=== PATIENT | male | born 2000 | race Caucasian/White ===

== ENCOUNTER 2018-04-06 22:40 | Inpatient (IN) ==
[2018-04-06] MEDS ORDERED: SODIUM CHLORIDE 0.9% 1000ML 1,000 ML IV ONE (22:59)
[2018-04-06 23:31] LABS: iSTAT Hemoglobin 15.6 g/dl (14.0-18.0); iSTAT Ionized Calcium 1.09 mmol/l
[2018-04-07] MEDS ORDERED: LIDO/EPINEPHRINE/SOD BICARB 20 ML VIAL ONE (00:41)
[2018-04-07] MEDS ORDERED: AMOXICILLIN/CLAVULANATE 875 MG TAB PO ONE (01:18)
[2018-04-07 01:43] LABS: Basophils # (auto) 0.02 K/uL (0-0.2); Basophils % (auto) 0.2 %; Eosinophils # (auto) 0.03 K/uL (0-0.5); Eosinophils % (auto) 0.3 %; Hematocrit (blood only) 48.4 % (42-52); Hemoglobin 16.7 g/dL (14.0-18.0); Immature Granulocytes # (auto) 0.02 K/uL (0.00-0.02); Immature Granulocytes % (auto) 0.2 %; Lymphocytes # (auto) 0.95 K/uL (1.2-3.4); Lymphocytes % (auto) 10.6 %; Mean Corpuscular Hgb Conc 34.5 g/dL (32-36); Mean Corpuscular Volume 94.9 fL (80-100); Mean Platelet Volume 9.7 fL (7.4-10.4); Monocytes # (auto) 0.66 K/uL (0.11-0.59); Monocytes % (auto) 7.3 %; Neutrophils # (auto) 7.32 K/uL (1.4-6.5); Neutrophils % (auto) 81.4 %; Platelet Count 184 K/uL (130-400); RDW Coefficient of Variation 12.7 % (11.5-14.5)
--- NOTE | 2018-04-07 01:52 | Emergency Department Note ---
Entered by Eze Traylor acting as a scribe for Juancarlos Powell History of Present Illness General Chief complaint: Facial Injury/Pain Stated complaint: PASSED OUT, LACERATION TO LIP/RT EYEBROW, NOSE DIS Time Seen by Provider: 04/06/18 22:54 Source: patient History of Present Illness Provider complaint: Facial injury Onset (ago): minute(s) 45 Location: face Pain Consistency: + other (Episode) Maximum Pain Intensity: 4 Associated symptoms: + confusion, + syncope and + other (Vision impairment); no cough, no fever/chills and no nausea/vomiting The patient is a 18 year old male who presents to the Emergency Room after having a syncopal episode about 45 minutes ago. He states that he was having a conversation when everything got fuzzy and black and he became confused. The next thing he remembers he was sitting up in a chair. He states he did eat dinner but did not drink a lot of water today. He also states he was smoking a marijuana pen earlier in the day but did not consume any alcohol. He denies any recent travel, steroid medications, fever or cough. He also is not on any blood thinners. He does state that he has in the past been told he has had an irregular heartbeat. Home Medications Home Medications Medication Instructions Recorded Confirmed Type amoxicillin-pot clavulanate 1 tab PO BID #14 tab 04/07/18 Rx [Augmentin] Past Med/Surg History Medical History No pertinent past medical history Family History Other No pertinent family history in first degree relatives Social History Feels Safe at Home: Yes Smoking Status: Former smoker Review of Systems See HPI for pertinent positives & negatives. and A total of 10 systems reviewed and were otherwise negative Physical Exam Vital Signs Vital Signs - 24 hr 04/06/18 22:43 04/07/18 00:43 04/07/18 01:48 Temperature 36.8 C Temperature Source Oral Sepsis Recent Fever Within 48 Hours No Sepsis New/Unexplained Change in Mental Status No Sepsis Action Taken by Nursing No Action Required Pulse Rate 91 H Pulse Rate [Apical] 66 60 Pulse Rhythm Regular Pulse Strength Normal Respiratory Rate 20 16 18 Respiratory Effort / Characteristics Non-Labored Non-Labored Non-Labored Respiratory Depth Normal Normal Normal Respiratory Pattern Regular Regular Regular Blood Pressure 136/80 Blood Pressure [Left Arm] 149/87 H 144/82 H Blood Pressure Mean 98 Blood Pressure Mean [Left Arm] 107 102 Blood Pressure Position Sitting Blood Pressure Position [Left Arm] Sitting Sitting Pulse Oximetry 99 100 Oxygen Delivery Method Room Air Room Air GENERAL: He is oriented to person, place, and time. He appears well-developed and well-nourished. He does not appear distressed. HENT: Exam performed. - Head: Normocephalic. Abrasion over the right eye brow - Right Ear: External ear normal. No mastoid tenderness. - Left Ear: External ear normal. No mastoid tenderness. - Mouth/Throat: The oropharynx is clear and moist. No trismus in the jaw. No dental abscesses or uvula swelling. No oropharyngeal exudate or tonsillar abscesses. Palate is stable. 7cm oral gaping laceration under the upper lip. NOSE: Nasal septum is displaced to the left. No septal hematoma bilaterally. EYES: Conjunctivae and EOM are normal. Pupils are equal, round, and reactive to light. Right eye exhibits no discharge. Left eye exhibits no discharge. No scleral icterus. NECK: Normal range of motion. Neck supple. No JVD present. No spinous process tenderness present. No carotid bruit present. No rigidity. No tracheal deviation and normal range of motion present. No Brudzinski's sign and no Kernig 's sign noted. CV: Normal rate, regular rhythm, normal heart sounds and intact distal pulses. There is no peripheral edema. Palpable radial pulses bue. PULM/CHEST: Effort normal and breath sounds normal. No respiratory distress. No stridor. He has no wheezes. He has no rales. - Chest Wall: He exhibits no tenderness. ABD: The abdomen is soft. Bowel sounds are normal. He has no distension. No mass is present. There is no tenderness. There is no rebound, no guarding, no Barnes's sign and no tenderness at McBurney's point. Rovsig negative. MUSC/SKEL: Normal range of motion. There is no peripheral edema, tenderness or deformity. LYMPH: No cervical adenopathy. NEURO: He is alert and oriented to person, place, and time. He has normal strength. No cranial nerve deficit or sensory deficit. Coordination and gait normal. GCS eye subscore is 4. GCS verbal subscore is 5. GCS motor subscore is 6. Cerebellar tests wnl. SKIN: Skin is warm and dry. He is not diaphoretic. PSYCH: He has a normal mood and affect. Behavior is normal. Judgment and thought content normal. Procedures Laceration Laceration 1: Site: lip (Intraoral upper lip.) Size (cm): 7 Description: linear Depth: simple, single layer Local Anesthetic: lidocaine 1% and with epi Amount of anesthesia used (mL): 7 Pre-repair: irrigated extensively Skin layer closed with: vicryl Size (cm): 5-0 Number of sutures: 7 Technique: simple, interrupted Course 2255: Past medical records reviewed. The patient was evaluated in room B05, and a complete history and physical examination were performed. 0155: Vital signs stable. EKG shows sinus arrhythmia. No ST elevation or ST depression. Labs within normal limits. Intraoral laceration was repaired. See procedure note. CTs within normal limits with the exception of nasal fractures. Discussed the patient's care with his father who is a physician in [place]. We planned on discharging the patient home with follow-up ENT, cardiology, and S. However, prior to discharge, a bedside [id number] cardiac ultrasound was conducted by me. It appeared that there could be a mass in the left ventricle, concerning for thrombus versus myxoma. This mass was best visualized in the apical and parasternal short view. Given these findings , it was thought it would be best for the patient to be admitted for continuous cardiac monitoring and formal echo in the morning. I discussed these findings and concerns with Dr. Barron [facility]. He has today speak with cardiology about the need for anticoagulation given the concern for the possibility of a left ventricular thrombus. I discussed the findings with [facility] cardiology on-call Dr. Glover. He states the patient is at extremely low risk for a left ventricular thrombus given his age and no other comorbidities. He states given the patient's recent head trauma, and the low risk for thrombus , he does not recommend starting anticoagulation at this time. I agree with this decision. Not in any cardiology will be on consult. I did discuss the patient's labs, imaging including bedside ultrasound with the patient's father who is a physician in [place]. He agrees with the decision to admit the patient for cardiology evaluation and formal echo. Administered Medications Discontinued Medications Amoxicillin/Clavulanate Potassium (Augmentin 875mg) 1 tab PO NOW ONE Stop: 04/07/18 01:19 Last Admin: 04/07/18 02:07 Dose: 1 tab Sodium Chloride (Nss 1000ml) 1,000 mls @ 999 mls/hr IV .Q1H1M ONE Stop: 04/06/18 23:59 Last Infusion: 04/07/18 00:45 Dose: 0 mls/hr Admin: 04/06/18 23:59 Dose: 999 mls/hr Lidocaine/Epinephrine (Buffered Xylocaine/Epinephrine 1%) Confirm Administered Dose 20 ml .ROUTE .STK-MED ONE Stop: 04/07/18 00:42 Last Admin: 04/07/18 00:45 Dose: 20 ml Medical Decision Making Medical Records Attestation: I reviewed the patient's medical records. Home Medications Current Medication List: was personally reviewed by me Laboratory Data Attestation: I reviewed the patient's lab results. Result diagrams: 04/06/18 23:11 Lab Results 04/06/18 04/06/18 04/06/18 Range/Units 23:11 23:11 23:11 WBC 9.00 (4.8-10.8) K/uL RBC 5.10 (4.7-6.1) M/uL Hgb 16.7 (14.0-18.0) g/dL POC Hgb (14.0-18.0) g/dl Hct 48.4 (42-52) % POC Hct (42-52) % MCV 94.9 (80-100) fL MCH 32.7 (25-34) pg MCHC 34.5 (32-36) g/dL RDW Std Deviation 44.0 (36.4-46.3) fL RDW Coeff of Terrence 12.7 (11.5-14.5) % Plt Count 184 (130-400) K/uL MPV 9.7 (7.4-10.4) fL Immature Gran % (Auto) 0.2 % Neut % (Auto) 81.4 % Lymph % (Auto) 10.6 % Faulkner % (Auto) 7.3 % Eos % (Auto) 0.3 % Baso % (Auto) 0.2 % Immature Gran # (Auto) 0.02 (0.00-0.02) K/uL Neut # (Auto) 7.32 H (1.4-6.5) K/uL Lymph # (Auto) 0.95 L (1.2-3.4) K/uL Faulkner # (Auto) 0.66 H (0.11-0.59) K/uL Eos # (Auto) 0.03 (0-0.5) K/uL Baso # (Auto) 0.02 (0-0.2) K/uL POC Sodium (135-144) mEq/L POC Potassium (3.3-5.0) mEq/L POC Chloride (101-112) mEq/L POC Total CO2 (24-31) mEq/l POC Anion Gap (16-25) mmol/L POC BUN (7-18) mg/dl POC Creatinine mg/dl POC Glucose (other) (70-99) mg/dl POC Ioniz Calcium Baldev mmol/l Troponin I < 0.015 (0-0.045) ng/ml Ethyl Alcohol mg/dL < 3.0 (0-3) mg/dl 04/06/18 Range/Units 23:18 WBC (4.8-10.8) K/uL RBC (4.7-6.1) M/uL Hgb (14.0-18.0) g/dL POC Hgb 15.6 (14.0-18.0) g/dl Hct (42-52) % POC Hct 46 (42-52) % MCV (80-100) fL MCH (25-34) pg MCHC (32-36) g/dL RDW Std Deviation (36.4-46.3) fL RDW Coeff of Terrence (11.5-14.5) % Plt Count (130-400) K/uL MPV (7.4-10.4) fL Immature Gran % (Auto) % Neut % (Auto) % Lymph % (Auto) % Faulkner % (Auto) % Eos % (Auto) % Baso % (Auto) % Immature Gran # (Auto) (0.00-0.02) K/uL Neut # (Auto) (1.4-6.5) K/uL Lymph # (Auto) (1.2-3.4) K/uL Faulkner # (Auto) (0.11-0.59) K/uL Eos # (Auto) (0-0.5) K/uL Baso # (Auto) (0-0.2) K/uL POC Sodium 141 (135-144) mEq/L POC Potassium 3.6 (3.3-5.0) mEq/L POC Chloride 103 (101-112) mEq/L POC Total CO2 29 (24-31) mEq/l POC Anion Gap 14.0 L (16-25) mmol/L POC BUN 17 (7-18) mg/dl POC Creatinine 1.1 mg/dl POC Glucose (other) 102 H (70-99) mg/dl POC Ioniz Calcium Baldev 1.09 mmol/l Troponin I (0-0.045) ng/ml Ethyl Alcohol mg/dL (0-3) mg/dl Imaging Data Radiologist's Impression: Chest Xray viewed by me Airway clear. No focal infiltrate. No cardiomegaly. No free air under the diaphragm. No fractures of the bony structures. No pneumothorax. Radiology results as stated below per my review and the radiologist's interpretation: CT HEAD: Nondisplaced fracture of the nasal bones. Prominent right paranasal and right frontal soft tissue swelling. No calvarial fractures. No intracranial hemorrhage or extra-axial fluid collection. No retroorbital fluid collection. Radiologist: James Garcia MD Study ready at 23:59 and initial results transmitted at 00:07 CT C SPINE: No acute fracture or subluxation of the cervical spine. Radiologist: James Garcia MD Study ready at 00:06 and initial results transmitted at 00:21 CT FACIAL: Multiple minimallydisplaced and angulated fractures of the bilateral nasal bones. Right paranasal soft tissue swelling. Left nasal septal deviation. Right frontal soft tissue swelling and right supraorbital soft tissue swelling. Bilateral globes are intact. No retro-orbital hematoma. Mild mucosal thickening of the bilateral maxillaryand ethmoid sinuses. No air- fluid levels. No other fractures. Radiologist: James Garcia MD Study ready at 00:09 and initial results transmitted at 00:24 ECG Data Attestation: I personally reviewed and interpreted this ECG as follows: Indication: syncope Rate (beats per minute): 72 Rhythm: sinus with SA Findings: + other (Intervals are within normal limits); no ST depression and no ST elevation Additional Comments: Repeat at 23:23: Sinus with sinus arrhythmia rate of 68, no ST elevation or ST depression, intervals are within normal limits. Blood Pressure Blood Pressure Findings: Normal blood pressure MDM Narrative Vital signs stable. EKG shows sinus arrhythmia. No ST elevation or ST depression. Labs within normal limits. Intraoral laceration was repaired. See procedure note. CTs within normal limits with the exception of nasal fractures. Discussed the patient's care with his father who is a physician in [place]. We planned on discharging the patient home with follow-up ENT, cardiology, and S. However, prior to discharge, a bedside [id number] cardiac ultrasound was conducted by me. It appeared that there could be a mass in the left ventricle, concerning for thrombus versus myxoma. This mass was best visualized in the apical and parasternal short view. Given these findings , it was thought it would be best for the patient to be admitted for continuous cardiac monitoring and formal echo in the morning. I discussed these findings and concerns with Dr. Barron [facility]. He has today speak with cardiology about the need for anticoagulation given the concern for the possibility of a left ventricular thrombus. I discussed the findings with [facility] cardiology on-call Dr. Glover. He states the patient is at extremely low risk for a left ventricular thrombus given his age and no other comorbidities. He states given the patient's recent head trauma, and the low risk for thrombus , he does not recommend starting anticoagulation at this time. I agree with this decision. Not in any cardiology will be on consult. I did discuss the patient's labs, imaging including bedside ultrasound with the patient's father who is a physician in [place]. He agrees with the decision to admit the patient for cardiology evaluation and formal echo. Impression & Plan Syncope, CHI (closed head injury), Laceration of lip, Fracture of nasal bone Discharge Plan Visit Data Chief Complaint: Facial Injury/Pain Stated Complaint: PASSED OUT, LACERATION TO LIP/RT EYEBROW, NOSE DIS ED Provider: Juancarlos Powell Discharge Problem: Syncope, CHI (closed head injury), Laceration of lip, Fracture of nasal bone Patient Disposition: Being Evaluated by Hospitalist Discharge Instructions Krames/Other Patient Handouts: Syncope, Syncope Causes, ED Fx Nasal Conf W X Ray, ED Head Injury Closed, ED Laceration All Forms Stand Alone Forms: My [facility], Important Visit Information Prescriptions Prescriptions: New amoxicillin-pot clavulanate [Augmentin] 875-125 mg tablet 1 tab PO BID Qty: 14 RF: 0 Referrals Referrals: Terry Steiner MD [Electronics Instructor] - (Follow-up in 1-7 days.) Joselin Palmer MD [Surgeon] - (Follow-up in 1-7 days.) [facility] [Primary Care Provider] - (Follow-up in 1-7 days.) The scribe's documentation has been prepared under my direction and personally reviewed by me in its entirety. I confirm that the note above accurately reflects all work, treatment, procedures, and medical decision making performed by me.
[2018-04-07 02:34] LABS: Amphetamines+Metham, Urine Neg (Neg); Barbiturates, Urine Neg (Neg); Benzodiazepine, Urine Neg (Neg); Cocaine, Urine Neg (Neg); MDMA (Ecstacy), Urine Neg (Neg); Methadone, Urine Neg (Neg); Opiate, Urine Neg (Neg); Phencyclidine, Urine Neg (Neg)
--- NOTE | 2018-04-07 02:42 | History & Physical Report ---
Date of Service April 07, 2018 Assessment & Plan (1) Syncope: Syncope --will order brain MRI --Consult cardiology in setting of abnormal bedside echo and sinus arrhythmia --Orthostatic vitals --Formal echo in AM --Await tox screen Abnormal bedside echo/sinus arrhythmia --Formal echo in AM --Cards consulted --Does not appear to be marfanoid but may consider it Closed head injury --Pain control prn --Tetanus shot administered --Continue augmentin --Would recommend discussing concussion treatment going forward --Outpt f/u with ENT and S DVTP: none CODE: full Dispo: admit to tele, await further evaluation (2) CHI (closed head injury): (3) Laceration of lip: (4) Fracture of nasal bone: (5) Abnormal ultrasound cardiogram: (6) Sinus arrhythmia: History of Present Illness Chief Complaint: Syncope Primary Care Provider: [facility] Patient is a pleasant 18yo M insignificant [facility] who presents with friends after a syncopal episode. He and friends report that 45min [employer]QUETTER [employer]PER[employer], they were standing around their living room, and suddenly he felt "hazy, things went black" and the next thing he remembers is sitting in a chair with his friends looking at him. Friends report that his whole body just went stiff and he faceplanted plank -style directly onto the floor. They deny any seizure/shaking movements, noted he had a pulse but was "out of it" for 5-10 minutes. He was speaking some jibberish after the event and asking same questions repeatedly. He denies any biting of tongue or bladder incontinence. He states he did smoke some marijuana several hours prior to the event, and had no alcohol or illicit substances immediately proceeding the event. Friends noted he was bleeding from his nose and mouth and brought him to the hospital. Patient does report that he was told during high school physicals that he had an irregularity in his heart sounds, but does not recall if this was a murmur or not. He states that some sort of scan was done and he was not told anything was wrong. He has never had syncopal or seizure like episodes in the past. He denies family hx of syncope or SCD. He does exercise regularly and is able to participate in running and weight lifting without abnormal symptoms. 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 In the ER he had repair of facial/lip lacerations, was given a dose of augmentin , and was planning on discharge with close outpatient followup with ENT/USH/ Cardio. His EKG was concerning for sinus arrhythmia, and ER provider performed bedside echo and saw concerning lesion in his left ventricle. The decision was made to admit for further investigation. Allergies Allergy/AdvReac Type Severity Reaction Status Date / Time No Known Allergies Allergy Verified 04/07/18 03:44 Home Medications Home Medications Medication Instructions Recorded Confirmed Type amoxicillin-pot clavulanate 1 tab PO BID #14 tab 04/07/18 Rx [Augmentin] amoxicillin-pot clavulanate 1 tab PO BID #14 tab 04/07/18 04/07/18 Rx [Augmentin] Past Med/Surg History Medical History No pertinent past medical history Family History Other No pertinent family history in first degree relatives Social History Current Living Situation: Other Current Living Situation Comment: Room mates- student Other Information That Helps Us Care for You: No Feels Safe at Home: Yes Safety Concerns: Feels Safe At This Time Smoking Status: Never smoker Hx Alcohol Use: No Hx Substance Use: No Beliefs That Will Affect Care: None Implementation Coordinator Required: No Review of Systems All systems reviewed & are unremarkable except as noted in HPI & below Cardiovascular: + syncope; no palpitations and no lightheadedness Musculoskeletal: as per Subjective / HPI Integumentary: + new lesions and + wounds Neurologic: + headache(s) (after fall/currently) and + confusion (surrounding event) Physical Exam 2 Vital Signs (Past 24 Hours): Last Vital Signs Temp 36.8 C 04/06/18 22:43 Pulse 60 04/07/18 01:48 Resp 18 04/07/18 01:48 BP 144/82 H 04/07/18 01:48 Pulse Ox 100 04/07/18 00:43 Constitutional: WD/WN, vitals as above Eyes: + eyes dysmorphic (Localized tissue swelling around R eye) ENMT: Nose: + turbinate abnormality (nose swollen, possibly misshaped but hard to tell with swelling) Mouth: + lip abnormality (swollen upper lip) Respiratory: normal respiratory effort, lungs clear to auscultation Cardiovascular: Rate/Rhythm: regular rate; + abnormal rhythm (irregular, occasional dropped beats) Heart Sounds: no murmur Extremities: no calf tenderness and no pedal edema Gastrointestinal (Abdomen): normal bowel sounds, soft, nontender, no hepatosplenomegaly Musculoskeletal: Head/Neck/Chest: + head abnormal to inspection; + evidence of head trauma Skin: no rashes, warm and dry Neurologic: PERRL, EOMI, accommodation nl, no face palsy, no dysarthria Some evidence of likely concussive symptoms Psychiatric: A+Ox3, euthymic affect Results & Data Laboratory Results 04/07/18 04/07/18 04/06/18 Range/Units 01:40 01:40 23:18 WBC (4.8-10.8) K/uL RBC (4.7-6.1) M/uL Hgb (14.0-18.0) g/dL POC Hgb 15.6 (14.0-18.0) g/dl Hct (42-52) % POC Hct 46 (42-52) % MCV (80-100) fL MCH (25-34) pg MCHC (32-36) g/dL RDW Std Deviation (36.4-46.3) fL RDW Coeff of Terrence (11.5-14.5) % Plt Count (130-400) K/uL MPV (7.4-10.4) fL Immature Gran % (Auto) % Neut % (Auto) % Lymph % (Auto) % Woodson % (Auto) % Eos % (Auto) % Baso % (Auto) % Immature Gran # (Auto) (0.00-0.02) K/uL Neut # (Auto) (1.4-6.5) K/uL Lymph # (Auto) (1.2-3.4) K/uL Woodson # (Auto) (0.11-0.59) K/uL Eos # (Auto) (0-0.5) K/uL Baso # (Auto) (0-0.2) K/uL POC Sodium 141 (135-144) mEq/L POC Potassium 3.6 (3.3-5.0) mEq/L POC Chloride 103 (101-112) mEq/L POC Total CO2 29 (24-31) mEq/l POC Anion Gap 14.0 L (16-25) mmol/L POC BUN 17 (7-18) mg/dl POC Creatinine 1.1 mg/dl POC Glucose (other) 102 H (70-99) mg/dl POC Ioniz Calcium Baldev 1.09 mmol/l Troponin I (0-0.045) ng/ml Urine Opiates Screen Neg (Neg) Ur Methadone, Qual Neg (Neg) Urine Barbiturates Neg (Neg) Ur Phencyclidine (PCP) Neg (Neg) U Amphetamin/Meth Scrn Neg (Neg) MDMA (Ecstasy) Screen Neg (Neg) U Benzodiazepines Scrn Neg (Neg) Ur Cocaine Metabolite Neg (Neg) U Marijuana (THC) Screen Pos H (Neg) U Marijuana THC Carboxy Pending Ethyl Alcohol mg/dL (0-3) mg/dl 04/06/18 04/06/18 04/06/18 Range/Units 23:11 23:11 23:11 WBC 9.00 (4.8-10.8) K/uL RBC 5.10 (4.7-6.1) M/uL Hgb 16.7 (14.0-18.0) g/dL POC Hgb (14.0-18.0) g/dl Hct 48.4 (42-52) % POC Hct (42-52) % MCV 94.9 (80-100) fL MCH 32.7 (25-34) pg MCHC 34.5 (32-36) g/dL RDW Std Deviation 44.0 (36.4-46.3) fL RDW Coeff of Terrence 12.7 (11.5-14.5) % Plt Count 184 (130-400) K/uL MPV 9.7 (7.4-10.4) fL Immature Gran % (Auto) 0.2 % Neut % (Auto) 81.4 % Lymph % (Auto) 10.6 % Woodson % (Auto) 7.3 % Eos % (Auto) 0.3 % Baso % (Auto) 0.2 % Immature Gran # (Auto) 0.02 (0.00-0.02) K/uL Neut # (Auto) 7.32 H (1.4-6.5) K/uL Lymph # (Auto) 0.95 L (1.2-3.4) K/uL Woodson # (Auto) 0.66 H (0.11-0.59) K/uL Eos # (Auto) 0.03 (0-0.5) K/uL Baso # (Auto) 0.02 (0-0.2) K/uL POC Sodium (135-144) mEq/L POC Potassium (3.3-5.0) mEq/L POC Chloride (101-112) mEq/L POC Total CO2 (24-31) mEq/l POC Anion Gap (16-25) mmol/L POC BUN (7-18) mg/dl POC Creatinine mg/dl POC Glucose (other) (70-99) mg/dl POC Ioniz Calcium Baldev mmol/l Troponin I < 0.015 (0-0.045) ng/ml Urine Opiates Screen (Neg) Ur Methadone, Qual (Neg) Urine Barbiturates (Neg) Ur Phencyclidine (PCP) (Neg) U Amphetamin/Meth Scrn (Neg) MDMA (Ecstasy) Screen (Neg) U Benzodiazepines Scrn (Neg) Ur Cocaine Metabolite (Neg) U Marijuana (THC) Screen (Neg) U Marijuana THC Carboxy Ethyl Alcohol mg/dL < 3.0 (0-3) mg/dl Code Status & VTE Plan Code Status Full VTE Prophylaxis Plan VTE Prophylaxis will be ordered: No Reason for no VTE drug order: Treatment not indicated Reason for no VTE mechanical prophylaxis: Treatment not indicated Supervising Physician Co-Signing Physician Notes Attending addendum: I have physically seen this patient, have supervised the medical residents activities, and agree with the H&P unless as otherwise noted. Assessment and Plan: Syncope-- The patient will be admitted to telemetry for serial cardiac enzymes, serial EKG's, cardiac rhythm monitoring and a 2-D echocardiogram with Dopplers. Concern regarding possible left atrial abnormality on preliminary echo performed by ED staff. Order MRI of brain without contrast Orthostatic vital signs. UDS. Sinus arrhythmia at his age is likely benign. Closed head injury-- Likely had concussion associated due to reported garbled speech by friends who are present. Discussed possibility of postconcussive syndrome. Remainder of orders notations as noted. Resident Activity Tracking Resident Involvement: Resident Care Provided Care Provided: [facility] _ (1) Fracture of nasal bone Encounter type: initial encounter Fracture healing: Fracture type: closed Qualified Code(s): S02.2XXA - Fracture of nasal bones, initial encounter for closed fracture (2) CHI (closed head injury) Encounter type: initial encounter Qualified Code(s): S09.90XA - Unspecified injury of head, initial encounter (3) Syncope Encounter type: Syncope type: unspecified Qualified Code(s): R55 - Syncope and collapse (4) Laceration of lip Encounter type: initial encounter Qualified Code(s): S01.511A - Laceration without foreign body of lip, initial encounter
[2018-04-07] MEDS ORDERED: ONDANSETRON INJ 2 MG/ML 2 ML VIAL IV PRN (04:25)
[2018-04-07] MEDS ORDERED: ACETAMINOPHEN 325 MG TAB PO PRN (04:25)
[2018-04-07] MEDS ORDERED: DIPHTHERIA/TETANUS/PERTUSSIS 0.5 ML SYR/VIAL IM ONE (04:25)
--- NOTE | 2018-04-07 07:05 | CT Scan Report ---
CERVICAL SPINE CT CT DOSE: HISTORY: fall TECHNIQUE: Multiaxial CT images of the cervical spine were performed and reformatted in the sagittal and coronal plane without the use of contrast. A dose lowering technique was utilized adhering to th e principles of ALARA. COMPARISON: None. FINDINGS: No fractures. No subluxation. Prevertebral soft tissues and the C1-C2 interval are intact. No pneumothorax. Small sebaceous cyst in the right lower posterior subcutaneous soft tissues. IMPRESSION: No fractures within the cervical spine. Electronically signed by: Dylan Eid M.D. 04/07/2018 7:03 AM
--- NOTE | 2018-04-07 07:07 | CT Scan Report ---
CT SCAN OF THE BRAIN WITHOUT IV CONTRAST CLINICAL HISTORY: Fall. Syncope. COMPARISON STUDY: No priors. TECHNIQUE: Unenhanced axial CT scan of the brain is performed from the vertex to the skull base. A d ose lowering technique was utilized adhering to the principles of ALARA. CT DOSE: 1067.68 mGy.cm FINDINGS: Brain parenchyma: The brain parenchyma is normal in appearance. There is no hemorrhage, mass effect, or evidence of acute territorial ischemia by CT criteria. Lozoya-white matter differentiation is preser dana. No extra-axial fluid collection is seen. Ventricles, sulci, cisterns: Normal in configuration. Intracranial vasculature: The visualized intracranial vasculature at the skull base is normal in appe arance. Calvarium: There is no depressed calvarial fracture. Bilateral nasal bone fractures are identified. Soft tissues: There is a right frontal and periorbital scalp hematoma. There is also prenasal soft ti ssue edema. Sinuses and mastoids: The visualized paranasal sinuses are clear. The mastoid air cells are well pneu matized. Orbits: The bony orbits are grossly intact. IMPRESSION: 1. There is no hemorrhage, mass effect, or evidence of acute territorial ischemia by CT criteria. 2. Right frontal and right periorbital soft tissue injury. 3. Bilateral nasal bone fractures are partially imaged. Electronically signed by: Isac Mitchell M.D. 04/07/2018 7:05 AM
--- NOTE | 2018-04-07 07:14 | XRay Report ---
XR chest 2V routine CLINICAL HISTORY: 18 years-old Male presenting with syncope. TECHNIQUE: PA and lateral views of the chest were obtained. COMPARISON: None. FINDINGS: Cardiomediastinal silhouette normal. Lungs and pleural spaces clear. Osseous structures normal. Upper abdomen normal. IMPRESSION: 1. No acute cardiopulmonary disease. Electronically signed by: Fran Meredith M.D. 04/07/2018 7:13 AM
--- NOTE | 2018-04-07 07:18 | Magnetic Resonance Report ---
Brain MRI WITHOUT CONTRAST HISTORY: syncopal episode TECHNIQUE: Multiplanar multisequence MRI of the brain was performed without the use of contrast. COMPARISON STUDY: None. FINDINGS: There are no areas of restricted diffusion to suggest acute infarction. The midline structu res are intact. The paranasal sinuses are clear. The mastoid air cells are clear. The ventricles and sulci are within normal limits for age. There is no mass, hematoma, midline shift. The major vascular flow-voids at the skull base are well maintained. Frontal, right periorbital, nasal soft tissue swel ling. IMPRESSION: No acute intracranial abnormality. Frontal, right periorbital, and nasal soft tissue swelling. Electronically signed by: Dylan Eid M.D. 04/07/2018 7:17 AM
--- NOTE | 2018-04-07 07:34 | CT Scan Report ---
CT facial bones wo con CLINICAL HISTORY: 18 years-old Male presenting with fall. TECHNIQUE: Multidetector CT of the face was performed without the use of intravenous contrast. IV con trast: None. One or more dose lowering techniques were used consistent with the principles of ALARA ( as low as reasonably achievable), including automatic exposure control, mA or kV adjustment to indivi dual patient size, and/or use of iterative reconstruction. COMPARISON: None. CT DOSE (mGy.cm): The estimated cumulative dose is 1067.60. 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 Comminuted mildly displaced bilateral nasal bone fractures with deviation to the left. There is also rightward deviation of the anterior bony nasal septum, which may be on an acute or chronic basis. Min imal polypoid mucosal thickening inferiorly in the maxillary sinuses. Paranasal sinuses and mastoid a ir cells otherwise clear. Significant scalp swelling and subjacent hematoma in the right supraorbital /right frontal region. This also involves the right aspect of the nares. The orbits are intact. No ev idence of intraorbital hematoma. Limited intracranial evaluation within normal limits. Temporomandibu lar joints intact. Mandible intact. Teeth intact. Zygomatic processes intact. Upper cervical spine no rmal. Remaining visualized soft tissues within normal limits allowing for noncontrast technique. IMPRESSION: 1. Bilateral comminuted and mildly displaced nasal bone fractures. No additional acute osseous injur y of the face. 2. Significant scalp contusion and subjacent hematoma in the right supraorbital/right frontal region . Electronically signed by: Fran Meredith M.D. 04/07/2018 7:33 AM
--- NOTE | 2018-04-07 10:58 | Cardiology Consultation ---
Date of Consultation April 07, 2018 Assessment & Plan (1) Syncope: 18 year old male pt with no significant pmhx presenting s/p syncopal episode. Given the patients recent cannabis consumption leading to autonomic instability, prolonged standing, and likely an element of dehydration the most probable diagnosis is a neurocardiogenic syncope. Further more is profound sinus arrthymia likely indicates baseline high vagal tone making him more susceptible to these episodes. The patients lack of cardiac symptoms is reassuring. The fact the patient was dazed after the fall is somewhat concerning , given the height of the fall and landing on his face, I am suspicious the pt may have a concussion. -Stable -Provided counseling regarding maintaining proper hydration -Advised is prodrome reccurs to sit down as quickly as possible and returrn for further evaluation (2) Sinus arrhythmia: Reasonably athletic 18 year old male. Varritions in sunus rhythm correlate with respiration and can be appreciated on cardiac auscultation. -Benign NTD -Advised pt is symptoms develop to contact their pcp to arrange follow up (3) Abnormal ultrasound cardiogram: Given lack of Cardiac syx, normal medical history, and reassuring lab values suspect this was an artifact -F/u echo preformed this a.m. if normal the patient is stable for discharge from a cardiac stand point Supervising Physician Co-Signing Physician Notes Cardiology attending addendum: This is a family practice resident note. Please refer to cardiology consultation under separate cover. History of Present Illness Reason for Consultation: Bedside echo concerning of LV pathology and sinus arrhhythmia Attending Physician: Pantera Myeer DO History of Present Illness The patient is lying in bed this morning with significant bruises and lacerations to his face. Patient reports no acute events overnight. Tele monitoring overnight demonstrated a sinus arrhythmia and hr in the 50's. During my interview with the patient he recounted the events leading to his admission as described below with the following exceptions. He states he was standing up talking with his friends with his knees locked, experienced a prodrome of seeing "stars and flashes", and than preceded to pass out. He denied using any other recreational drugs including ecstasy, synthetic marijuana, cocaine, pcp, hallucinogenics, and bath salts. I inquired about his prior cardiac history. He has always passed sports physicals without issue, never had trouble keeping up with his peers athletically, denies hx of, cp, sob, funny feeling in left arm or neck, prior syncopal episodes, palpitations, or other concerning si/sx for cardiac pathology. Pt cannot remeber if he had a heart murmur or arrhythmia as a child. All he remebers is obtaining a test the demonstred it was benign and he has not had medical follow up since. 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 He living off campus with 3 room mates. He is originally from [place], [place]. His father is an Internal Medicine physician Dr. Kennedy Peñaloza and requests an update from cardiology. All questions were answered and the pt has no current concerns. Admission HPI and Interval HX: Patient is a pleasant 18yo M insignificant PMH who presents with friends after a syncopal episode. He and friends report that 45min LAB ASST, they were standing around their living room, and suddenly he felt "hazy, things went black" and the next thing he remembers is sitting in a chair with his friends looking at him. Friends report that his whole body just went stiff and he faceplanted plank -style directly onto the floor. They deny any seizure/shaking movements, noted he had a pulse but was "out of it" for 5-10 minutes. He was speaking some jibberish after the event and asking same questions repeatedly. He denies any biting of tongue or bladder incontinence. He states he did smoke some marijuana several hours prior to the event, and had no alcohol or illicit substances immediately proceeding the event. Friends noted he was bleeding from his nose and mouth and brought him to the hospital. Patient does report that he was told during high school physicals that he had an irregularity in his heart sounds, but does not recall if this was a murmur or not. He states that some sort of scan was done and he was not told anything was wrong. He has never had syncopal or seizure like episodes in the past. He denies family hx of syncope or SCD. He does exercise regularly and is able to participate in running and weight lifting without abnormal symptoms. 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 In the ER he had repair of facial/lip lacerations, was given a dose of augmentin , and was planning on discharge with close outpatient followup with ENT/USH/ Cardio. His EKG was concerning for sinus arrhythmia, and ER provider performed bedside echo and saw concerning lesion in his left ventricle. The decision was made to admit for further investigation. Allergies Allergy/AdvReac Type Severity Reaction Status Date / Time No Known Allergies Allergy Verified 04/07/18 03:44 Home Medications Home Medications Medication Instructions Recorded Confirmed Type amoxicillin-pot clavulanate 1 tab PO BID #14 tab 04/07/18 Rx [Augmentin] amoxicillin-pot clavulanate 1 tab PO BID #14 tab 04/07/18 04/07/18 Rx [Augmentin] Patient History Medical History No pertinent past medical history Family History Other No pertinent family history in first degree relatives Social History Current Living Situation: Other Current Living Situation Comment: Room mates- student Other Information That Helps Us Care for You: No Feels Safe at Home: Yes Safety Concerns: Feels Safe At This Time Smoking Status: Never smoker Hx Alcohol Use: No Hx Substance Use: No Beliefs That Will Affect Care: None Pig Machine Operator Required: No Review of Systems Constitutional: as per Subjective / HPI Eyes: not seeing flashes Respiratory: no cough, no chest congestion and no dyspnea Cardiovascular: no chest pain, no chest pain at rest, no chest pain with activity, no radiating jaw, neck or arm pain, no orthopnea, no lightheadedness and no calf pain Gastrointestinal: no abdominal pain, no hematemesis, no change in stools, no blood in stools and no melena Musculoskeletal: + body aches Neurologic: as per Subjective / HPI Hematologic / Lymphatic: no easy bleeding and no easy bruising Physical Exam 2 Vital Signs (Past 24 Hours): Last Vital Signs Temp 37.0 C 04/07/18 08:22 Pulse 60 04/07/18 08:22 Resp 18 04/07/18 08:22 BP 124/65 04/07/18 08:22 Pulse Ox 98 04/07/18 08:22 Physical Exam: General: Well developed, well nourished, in no acute distress HEENT: Bruises and Laceration, Right Eye swollen shut Neck: Trachea Midline, no JVD, no Bruits Resp: CTAB/L Cardiac: Sinus arrhythmia, NL S1 S2, No MRG GI: Nl BS, Soft, Non tender, non distended MSK: moves all 4 extremities, no calf pain Skin: WWP, cap refill <2 Neuro: AAOx3, cooperative Constitutional: WD/WN, vitals as above well developed and well nourished Results & Data Laboratory Results 04/07/18 04/07/18 04/06/18 Range/Units 01:40 01:40 23:18 WBC (4.8-10.8) K/uL RBC (4.7-6.1) M/uL Hgb (14.0-18.0) g/dL POC Hgb 15.6 (14.0-18.0) g/dl Hct (42-52) % POC Hct 46 (42-52) % MCV (80-100) fL MCH (25-34) pg MCHC (32-36) g/dL RDW Std Deviation (36.4-46.3) fL RDW Coeff of Terrence (11.5-14.5) % Plt Count (130-400) K/uL MPV (7.4-10.4) fL Immature Gran % (Auto) % Neut % (Auto) % Lymph % (Auto) % [place] % (Auto) % Eos % (Auto) % Baso % (Auto) % Immature Gran # (Auto) (0.00-0.02) K/uL Neut # (Auto) (1.4-6.5) K/uL Lymph # (Auto) (1.2-3.4) K/uL [place] # (Auto) (0.11-0.59) K/uL Eos # (Auto) (0-0.5) K/uL Baso # (Auto) (0-0.2) K/uL POC Sodium 141 (135-144) mEq/L POC Potassium 3.6 (3.3-5.0) mEq/L POC Chloride 103 (101-112) mEq/L POC Total CO2 29 (24-31) mEq/l POC Anion Gap 14.0 L (16-25) mmol/L POC BUN 17 (7-18) mg/dl POC Creatinine 1.1 mg/dl POC Glucose (other) 102 H (70-99) mg/dl POC Ioniz Calcium Baldev 1.09 mmol/l Troponin I (0-0.045) ng/ml Urine Opiates Screen Neg (Neg) Ur Methadone, Qual Neg (Neg) Urine Barbiturates Neg (Neg) Ur Phencyclidine (PCP) Neg (Neg) U Amphetamin/Meth Scrn Neg (Neg) MDMA (Ecstasy) Screen Neg (Neg) U Benzodiazepines Scrn Neg (Neg) Ur Cocaine Metabolite Neg (Neg) U Marijuana (THC) Screen Pos H (Neg) U Marijuana THC Carboxy Pending Ethyl Alcohol mg/dL (0-3) mg/dl 04/06/18 04/06/18 04/06/18 Range/Units 23:11 23:11 23:11 WBC 9.00 (4.8-10.8) K/uL RBC 5.10 (4.7-6.1) M/uL Hgb 16.7 (14.0-18.0) g/dL POC Hgb (14.0-18.0) g/dl Hct 48.4 (42-52) % POC Hct (42-52) % MCV 94.9 (80-100) fL MCH 32.7 (25-34) pg MCHC 34.5 (32-36) g/dL RDW Std Deviation 44.0 (36.4-46.3) fL RDW Coeff of Terrence 12.7 (11.5-14.5) % Plt Count 184 (130-400) K/uL MPV 9.7 (7.4-10.4) fL Immature Gran % (Auto) 0.2 % Neut % (Auto) 81.4 % Lymph % (Auto) 10.6 % [place] % (Auto) 7.3 % Eos % (Auto) 0.3 % Baso % (Auto) 0.2 % Immature Gran # (Auto) 0.02 (0.00-0.02) K/uL Neut # (Auto) 7.32 H (1.4-6.5) K/uL Lymph # (Auto) 0.95 L (1.2-3.4) K/uL [place] # (Auto) 0.66 H (0.11-0.59) K/uL Eos # (Auto) 0.03 (0-0.5) K/uL Baso # (Auto) 0.02 (0-0.2) K/uL POC Sodium (135-144) mEq/L POC Potassium (3.3-5.0) mEq/L POC Chloride (101-112) mEq/L POC Total CO2 (24-31) mEq/l POC Anion Gap (16-25) mmol/L POC BUN (7-18) mg/dl POC Creatinine mg/dl POC Glucose (other) (70-99) mg/dl POC Ioniz Calcium Baldev mmol/l Troponin I < 0.015 (0-0.045) ng/ml Urine Opiates Screen (Neg) Ur Methadone, Qual (Neg) Urine Barbiturates (Neg) Ur Phencyclidine (PCP) (Neg) U Amphetamin/Meth Scrn (Neg) MDMA (Ecstasy) Screen (Neg) U Benzodiazepines Scrn (Neg) Ur Cocaine Metabolite (Neg) U Marijuana (THC) Screen (Neg) U Marijuana THC Carboxy Ethyl Alcohol mg/dL < 3.0 (0-3) mg/dl Medications Administered Current Inpatient Medications Acetaminophen (Tylenol) 650 mg PO Q4H PRN PRN Reason: Pain or Fever Stop: 05/07/18 04:24 Amoxicillin/Clavulanate Potassium (Augmentin 875mg) 1 tab PO BIDM ZAYNAB Stop: 05/19/18 16:59 Ondansetron HCl (Zofran) 4 mg IV Q6H PRN PRN Reason: Nausea Stop: 05/07/18 04:24 _ (1) Syncope Encounter type: Syncope type: unspecified Qualified Code(s): R55 - Syncope and collapse
[2018-04-07] MEDS ORDERED: PERFLUTREN LIPID MICROSPHERE (DEFINITY) IV ONE (11:28)
--- NOTE | 2018-04-07 13:22 | Cardiology Consultation ---
Date of Consultation April 07, 2018 Assessment & Plan (1) Syncope: There is no obvious cardiac etiology for his syncopal episode. It may have been related to dehydration in the setting of marijuana usage, sleep deprivation, or other etiology. To further evaluate for arrhythmia, 30 day event monitor is being arranged as an outpatient. He was advised to avoid driving for now. He has not had any other episodes and this episode occurred while standing. (2) Abnormal ultrasound cardiogram: There was reported left ventricular mass/thrombus noted by the emergency department Bedside ultrasound. Formal echocardiogram was personally reviewed. No left ventricular mass was noted and this included images with IV echo contrast. No further evaluation recommended at this time. (3) Sinus arrhythmia: Benign finding. Disposition: Patient care discussed with Dr. Meyer of the primary hospitalist service. He can follow-up in the cardiology office in 1-2 months. Cardiology office is arranging this appointment for him. Event monitor will also be arranged. Thank you for allowing me to participate in the care of your patient. Please call for any other questions or concerns. Sincerely, Pradip Steiner M.D. History of Present Illness Reason for Consultation: Sinus arrhythmia. Question left ventricular mass. Syncope. Requesting Physician: Dr. Martinez Attending Physician: Pantera Meyer DO History of Present Illness Mr. Simon is a 18-year-old gentleman with no known past medical history who presented to [facility] on 04/07/2018 after having a syncopal episode. He had been awake most of the weekend participating in [place]. He admits that he has not been drinking enough water. HeHas been very stressed out with school. He smoked marijuana yesterday earlier in the day and then a few hours later while standing with a bunch of friends, collapsed and lost consciousness. Shortly before he passed out, he saw flashes and stars in his eyes but otherwise had no other symptoms such as palpitations, chest pain, or lightheadedness. He felt a bit dazed for several minutes following the event. He fractured his nose, required sutures on his scalp, and has contusion on his forehead/right orbit. He has not had any syncope or near-syncope in the past. In the emergency department, he had a bedside cardiac ultrasound performed by the emergency department. There was concern for left ventricular mass or thrombus and therefore the decision was made to have him hospitalized overnight. Review of systems: As above. Review of systems otherwise negative/ unremarkable. Social history: Denies tobacco. Admits to marijuana usage. 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 He is from [place], [place]. He was alone in his hospital room. His father is a physician in [place]. Family history: No known premature CAD. Allergies Allergy/AdvReac Type Severity Reaction Status Date / Time No Known Allergies Allergy Verified 04/07/18 03:44 Home Medications Home Medications Medication Instructions Recorded Confirmed Type amoxicillin-pot clavulanate 1 tab PO BID #14 tab 04/07/18 04/07/18 Rx [Augmentin] Patient History Medical History No pertinent past medical history Family History Other No pertinent family history in first degree relatives Social History Current Living Situation: Other Current Living Situation Comment: Room mates- student Other Information That Helps Us Care for You: No Feels Safe at Home: Yes Safety Concerns: Feels Safe At This Time Smoking Status: Never smoker Hx Alcohol Use: No Hx Substance Use: No Beliefs That Will Affect Care: None Apartment Community Manager Required: No Physical Exam 2 Vital Signs (Past 24 Hours): Last Vital Signs Temp 36.4 C L 04/07/18 12:16 Pulse 45 L 04/07/18 12:16 Resp 20 04/07/18 12:16 BP 118/63 04/07/18 12:16 Pulse Ox 98 04/07/18 12:16 Physical Exam: Gen.: No acute distress. Alert and oriented. HEENT: Anicteric sclera. Ecchymoses right orbit. Soft tissue swelling for head. Sutured laceration scalp and lip. Neck: No JVD. No bruits. Normal carotid upstrokes bilaterally. Cardiac: PMI was nondisplaced. No ventricular heave. Mild irregularity. Normal S1-S2. No murmurs, rubs, or gallops. Pulmonary: Clear to auscultation bilaterally without wheezes, rales, or rhonchi. Abdomen: Soft, nontender, nondistended, with normoactive bowel sounds. No bruits noted. Extremities: 2+ radial pulses bilaterally. 2+ posterior tibialis pulses bilaterally. No edema or cyanosis. Psychiatric: Affect appears appropriate. Results & Data Laboratory Results Laboratory Results - last 24 hr 04/06/18 04/06/18 04/06/18 23:11 23:11 23:11 WBC 9.00 RBC 5.10 Hgb 16.7 POC Hgb Hct 48.4 POC Hct MCV 94.9 MCH 32.7 MCHC 34.5 RDW Std Deviation 44.0 RDW Coeff of Terrence 12.7 Plt Count 184 MPV 9.7 Immature Gran % (Auto) 0.2 Neut % (Auto) 81.4 Lymph % (Auto) 10.6 [place] % (Auto) 7.3 Eos % (Auto) 0.3 Baso % (Auto) 0.2 Immature Gran # (Auto) 0.02 Neut # (Auto) 7.32 H Lymph # (Auto) 0.95 L [place] # (Auto) 0.66 H Eos # (Auto) 0.03 Baso # (Auto) 0.02 POC Sodium POC Potassium POC Chloride POC Total CO2 POC Anion Gap POC BUN POC Creatinine POC Glucose (other) POC Ioniz Calcium Baldev Troponin I < 0.015 Urine Opiates Screen Ur Methadone, Qual Urine Barbiturates Ur Phencyclidine (PCP) U Amphetamin/Meth Scrn MDMA (Ecstasy) Screen U Benzodiazepines Scrn Ur Cocaine Metabolite U Marijuana (THC) Screen Ethyl Alcohol mg/dL < 3.0 04/06/18 04/07/18 23:18 01:40 WBC RBC Hgb POC Hgb 15.6 Hct POC Hct 46 MCV MCH MCHC RDW Std Deviation RDW Coeff of Terrence Plt Count MPV Immature Gran % (Auto) Neut % (Auto) Lymph % (Auto) [place] % (Auto) Eos % (Auto) Baso % (Auto) Immature Gran # (Auto) Neut # (Auto) Lymph # (Auto) [place] # (Auto) Eos # (Auto) Baso # (Auto) POC Sodium 141 POC Potassium 3.6 POC Chloride 103 POC Total CO2 29 POC Anion Gap 14.0 L POC BUN 17 POC Creatinine 1.1 POC Glucose (other) 102 H POC Ioniz Calcium Baldev 1.09 Troponin I Urine Opiates Screen Neg Ur Methadone, Qual Neg Urine Barbiturates Neg Ur Phencyclidine (PCP) Neg U Amphetamin/Meth Scrn Neg MDMA (Ecstasy) Screen Neg U Benzodiazepines Scrn Neg Ur Cocaine Metabolite Neg U Marijuana (THC) Screen Pos H Ethyl Alcohol mg/dL Diagnostic Findings Telemetry personally reviewed: Sinus rhythm. ECGs personally reviewed: ECG 04/06/2018 at 11:23 p.m.: Sinus arrhythmia 68 bpm. Early repolarization. ECG 04/06/2018 at 11:13 p.m.: Sinus rhythm with sinus arrhythmia. Early repolarization. S Echo 04/07/2018: Normal LV size, wall motion, systolic function. EF 60-65%. No LVH. No significant diastolic dysfunction. No significant valvular abnormalities. Normal RVSP. Brain MRI 04/07/2018: No acute intracranial abnormality. Frontal/right periorbital/nasal soft tissue swelling. Medications Administered Current Inpatient Medications Acetaminophen (Tylenol) 650 mg PO Q4H PRN PRN Reason: Pain or Fever Stop: 05/07/18 04:24 Amoxicillin/Clavulanate Potassium (Augmentin 875mg) 1 tab PO BIDM ZAYNAB Stop: 05/19/18 16:59 Ondansetron HCl (Zofran) 4 mg IV Q6H PRN PRN Reason: Nausea Stop: 05/07/18 04:24 _ (1) Syncope Encounter type: Syncope type: unspecified Qualified Code(s): R55 - Syncope and collapse
--- NOTE | 2018-04-07 15:21 | Discharge Summary ---
Date of Service April 07, 2018 Admission HPI Per Admitting Provider Patient is a pleasant 18[address] [facility] who presents with friends after a syncopal episode. He and friends report that [employer]min [employer], they were standing around their living room, and suddenly he felt "hazy, things went black" and the next thing he remembers is sitting in a chair with his friends looking at him. Friends report that his whole body just went stiff and he faceplanted plank -style directly onto the floor. They deny any seizure/shaking movements, noted he had a pulse but was "out of it" for 5-10 minutes. He was speaking some jibberish after the event and asking same questions repeatedly. He denies any biting of tongue or bladder incontinence. He states he did smoke some marijuana several hours prior to the event, and had no alcohol or illicit substances immediately proceeding the event. Friends noted he was bleeding from his nose and mouth and brought him to the hospital. Patient does report that he was told during high school physicals that he had an irregularity in his heart sounds, but does not recall if this was a murmur or not. He states that some sort of scan was done and he was not told anything was wrong. He has never had syncopal or seizure like episodes in the past. He denies family hx of syncope or SCD. He does exercise regularly and is able to participate in running and weight lifting without abnormal symptoms. 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 In the ER he had repair of facial/lip lacerations, was given a dose of augmentin , and was planning on discharge with close outpatient followup with ENT/USH/ Cardio. His EKG was concerning for sinus arrhythmia, and ER provider performed bedside echo and saw concerning lesion in his left ventricle. The decision was made to admit for further investigation. Principal Diagnosis syncope, sinus arrhythmia Discharge Exam Constitutional WD/WN, vitals as above ENMT lacerations/sutures to upper lip. R eye swollen shut. Upper lip swelling Respiratory normal respiratory effort, lungs clear to auscultation Cardiovascular Sinus arrhythmia. Normal S1, S2. No murmurs Gastrointestinal (Abdomen) normal bowel sounds, soft, nontender, no hepatosplenomegaly Skin no rashes, warm and dry Psychiatric A+Ox3, euthymic affect Discharge Data Allergies Allergy/AdvReac Type Severity Reaction Status Date / Time No Known Allergies Allergy Verified 04/07/18 03:44 Consultations 04/07/18 04:25 Consult Cardiology Routine Ordered Studies 04/06/18 23:00 CT cervical spine wo con Stat CT facial bones wo con Stat CT head/brain wo con Stat 04/07/18 04:25 MR brain wo con Urgent Hospital Course (1) Sinus arrhythmia: 18 y/o M with no significant PMH presented to [facility] 04/07 with friends after a syncopal episode. Friends stated that they were standing around their living room, and suddenly pt's whole body went stiff and he faceplanted onto the floor. They deny any seizure/shaking movements, and noted pt was 'out' for 5 -10 minutes. Pt notes he felt hazy, and things went black. He admits he did smoke some marijuana several hours prior to the event, but had no alcohol or illicit substances immediately proceeding the event. Friends noted he was bleeding from his nose and mouth and brought him to the hospital. In the ER he had repair of facial/lip lacerations, and was given a dose of augmentin. CT C- spine showed no fractures. Head CT showed no hemorrhage, mass effect, or evidence of acute territorial ischemia; right frontal and right periorbital soft tissue injury, bilateral nasal bone fractures. ER was planning on discharge ; however, his EKG was concerning for sinus arrhythmia, and bedside echo showed a concerning lesion in his left ventricle and the decision was made to admit for further investigation. The following is the medical management during pt's stay here. 1) Syncope/Sinus Arrhythmia -Pt reports that during high school physicals he was told that he had an irregularity in his heart sounds, but does not recall if this was a murmur or not. Pt denied prior syncopal episodes, palpitations, or other concerning signs/ sxs for cardiac pathology. Pt recalls obtaining a test that demonstrated heart irregularity was benign, but has not had medical follow up since. Pt exercises regularly and is able to participate in running and weight lifting without abnormal symptoms. Brain MRI here showed no acute intracranial abnormality, just frontal, right periorbital, and nasal soft tissue swelling. Cardiology was consulted and formal Echo showed: normal LV size and systolic function, EF 60-65 %, no regional wall motion abnormalities, no ventricular hypertrophy, no significant diastolic dysfunction, and no significant valvular abnormalities. Tox screen was negative for any substances other than marijuana. Given the patient's recent cannabis consumption prior to autonomic instability, prolonged standing, and likely an element of dehydration the most probable diagnosis is neurocardiogenic syncope. Tele overnight demonstrated sinus arrhythmia. The lack of cardiac symptoms was reassuring. Cardiology notes arrhythmia likely benign, there is no obvious cardiac etiology for his syncopal episode. Pt denied CP, ARNOLD, SOB during stay here. Cardiology will set up for 30 day event monitor to further evaluate for arrhythmia and f/u as an outpatient in 1-2 months, which they will arrange. 2) Closed head injury -Pt's injuries/lacerations were controlled with Tylenol 650 mg q4 prn. Pt was given a tetanus shot and Augmentin 875 mg BID, which he will continue on d/c. It is not unlikely that pt had a concussion given mechanism and height of fall. Pt instructed on slow return to normal activities/working out and red flag symptoms to look out for. DVT Prophylaxis was not given considering low risk. At time of d/c, pt had no other acute concerns or complaints. Total Time Total Time Spent Total Time Spent (In Minutes): >30 min Discharge Plan Discharge Items Patient Disposition: Home - Self-Care Reason For Visit: SYNCOPE Discharge Diagnosis: sinus arrhythmia, syncope Discharge Goals: Decrease discomfort and Diagnostic testing Activity: Per 'Additional Instructions' section Non-emergency contact: Primary Care Provider Call non-emergency contact if: you have any medication questions and your symptoms worsen Follow-up/Referrals: Marybeth Vivas [Family Provider] - 04/11/18 3:00 pm (Please, follow up at [facility] with Dr. Marybeth Vvias on WednesdayApril 11 at 3:00 pm. *If you need to change/cancel this appointment, call the clinic at [phone]. ) Diet: Heart Healthy Add Provider Instructions: You were admitted for syncope and an arrhythmia seen on EKG. Please follow the below instructions on discharge: -Follow up with [facility] within one week -Continue to take antibiotic augmentin for 7 days -Cardiology noted your arrhythmia was likely benign, as there is no obvious cardiac etiology for your syncopal episode. Your Echo was normal. You will wear event monitor for 30 days to monitor for arrhythmia and follow up with cardiology in 1-2 months. They will arrange for your appt. -Rest for at least one week, and afterwards have a slow graded return to activity (sports, exercise). -Be sure to drink plenty of fluids and discontinue any recreational drug use as it can exacerbate your symptoms Prescriptions: New amoxicillin-pot clavulanate [Augmentin] 875-125 mg tablet 1 tab PO BID Qty: 14 RF: 0 amoxicillin-pot clavulanate [Augmentin] 875-125 mg tablet 1 tab PO BID Qty: 14 RF: 0 Stand-Alone Forms: My [facility], Work/School Release (Inpt) Discharge Orders: Discharge Order (Routine); Ordered 04/07/18 Ordered By: Montez Rizo Admission Data Admit Date/Time: 04/07/18 02:25 Attending Provider: Pantera Meyer Admit Provider: Sania Martinez Primary Care Provider: [facility] Other Providers: Terry Steiner ; Jakob Lakhani Service: Telemetry Other Interventions: Discharge Summary Assessment (RN) Last Done: 04/07/18 16:00 DC Date/Time DO NOT enter until pt leaves facility: 04/07/18 17:00 Supervising Physician Co-Signing Physician Notes I personally examined the patient and verified all hennessy points of history and exam, discussed case, and agree with decision making with Dr Rizo. Feeling better, feeling up to going. Case discussed with cardiology, input appreciated. Patient notes that his facial pain is actually reasonably well controlled, but he does have a bit of a headache. Vitals noted, in general he is awake and alert pleasant no distress. He has right arm bruising rather swollen nose and swollen upper lip. Breathing is unlabored no accessory muscle use. Skin shows no rashes, pallor, icterus. Syncope�appears to be of the vasoactive variety. Discussed with patient to faint itself was benign, it was just the fall leading to the facial trauma. Cardiology would like outpatient rhythm monitoring. Otherwise patient stable for home. Abnormal bedside ultrasound of the heart was not corroborated with a true echo. Nasal fracture�antibiotics and ENT follow-up. Probable concussion�reviewed fairly standard "return to play" guidelines in the context of getting back to his regular activities. Discussed what to watch for as far as situations that would require cognitive rest, and noted that should he require cognitive rest, or if he is having any difficulty getting back to regular activities in fairly short order we would want him to follow-up with sports med Resident Activity Tracking Resident Involvement: Resident Care Provided Care Provided: Adult [facility]
[2018-04-07] MEDS ORDERED: AMOXICILLIN/CLAVULANATE 875 MG TAB PO SCH (17:00)
== END 2018-04-07 17:00 | disposition home or self-care (01) | DRG 312 ==
LOC: ED 22:40 → SUATTDRO 04-07 02:25 → 2S 04-07 02:25